=== PATIENT | male | born 1965 | race Caucasian/White ===

== ENCOUNTER 2017-11-06 17:55 | Emergency (ER) | payer BC ==
[~2017-11-06] VITALS: Ht 188 cm; Wt 132.8 kg
[~2017-11-06 17:55] MED LIST: ALPR0.5T99 PO; ASPI325T PO; BENA1TAB44 PO; BUPR-197 PO; GEMF600 PO; LOTE20TA PO; NEXI40CA PO; TOPR25TA2 PO; ZOCO40TA PO
[2017-11-06 18:02] VITALS: PULSE 134; RESP 20; TEMP 97.7; O2SAT 99
[2017-11-06] MEDS ORDERED: diphenhydrAMINE HCL 50 MG/ML VIAL IVP ONE (18:15)
[2017-11-06] MEDS ORDERED: FAMOTIDINE 20 MG/2 ML VIAL IV PUSH ONE (18:15)
[2017-11-06] MEDS ORDERED: SODIUM CHLORIDE 0.9% FLUSH 10 ML FLUSH IV FLUSH PRN (18:15)
[2017-11-06] MEDS ORDERED: methylPREDNISolone SOD SUCC 125 MG/2 ML VIAL IV PUSH ONE (18:15)
[2017-11-06] MEDS ORDERED: LISI-519 PO (18:18)
[2017-11-06] MEDS ORDERED: NEXI20CA PO (18:18)
[2017-11-06] MEDS ORDERED: METO100T PO (18:18)
[2017-11-06] MEDS ORDERED: ASPI-183 PO (18:18)
[2017-11-06] MEDS ORDERED: LORA0.5T PO (18:18)
[2017-11-06] MEDS ORDERED: ZOCO40TA PO (18:18)
[2017-11-06] MEDS ORDERED: AMLO5TAB2 PO (18:18)
--- NOTE | 2017-11-06 18:18 | PD ---
HPI Chief Complaint: Allergic/Adverse Reaction Time Seen by Provider: 18:15 Travel History International Travel<30 days: No Contact w/Intl Traveler<30days: No Traveled to known affect area: No History of Present Illness HPI 52-year-old male patient with history of hypertension, currently on lisinopril, presents to the ER today because he states that his upper lip started swelling at around noon, and is getting worse despite taking Benadryl. He denies any new medications, foods. He denies any trouble swallowing, shortness of breath, rashes, or any other issues. He has been on lisinopril for several years. He states that the only other medication he has had a reaction to was Lotensin which cause a rash in his mouth. Modifying Factors: None Associated Signs & Symptoms: Upper lip swelling Risk Factors: On lisinopril PFSH Past Medical History Anxiety: Yes High Cholesterol: Yes Diminished Hearing: No GERD: Yes Hypertension: Yes Influenza Vaccination: No ?: Not Past Surgical History Gynecologic Surgery: Yes (VASTECTOMY) Other Surgery: Yes (VASECTOMY) Family History Family Myocardial Infarction: Yes (GRANDMOTHER) Social History Alcohol Use: Yes (SOCIALLY WINE, LAST NIGHT LAST DRINK) Tobacco Use: Yes (HASN'T HAD A CIGARETT FOR 4 DAYS) Substance Use: No Allergies-Medications (Allergen,Severity, Reaction): Coded Allergies: No Known Allergies (Verified Adverse Reaction, Unknown, 11/06/17) Reported Meds & Prescriptions Reported Meds & Active Scripts Active Reported Tramadol (Tramadol HCl) 50 Mg Tab 50 Mg PO Q4H PRN Diphenhydramine (Diphenhydramine HCl) 25 Mg Cap 50 Mg PO ONCE Zocor (Simvastatin) 40 Mg Tab 40 Mg PO DAILY Nexium (Esomeprazole DR) 20 Mg Capdr 20 Mg PO DAILY Amlodipine (Amlodipine Besylate) 5 Mg Tab 5 Mg PO DAILY Lorazepam 0.5 Mg Tab 0.5 Mg PO BID PRN Aspirin 325 Mg Tab 325 Mg PO DAILY Metoprolol Tartrate 100 Mg Tab 100 Mg PO HS Lisinopril 5 Mg Tab 5 Mg PO BID Review of Systems Except as stated in HPI: all other systems reviewed are Neg Physical Exam Narrative GENERAL: Well-developed middle age male patient currently in mild distress. Awake and oriented 3. SKIN: Focused skin assessment warm/dry. HEAD: Atraumatic. Normocephalic. EYES: Pupils equal and round. No scleral icterus. No injection or drainage. ENT: Mucosa pink and moist. No erythema or exudates. No uvular edema. No uvular , palatal, or tonsillar deviation. Airway patent. There is notable upper lip swelling concerning for angioedema. NECK: Trachea midline. No JVD. CARDIOVASCULAR: Regular rate and rhythm. No murmur appreciated. RESPIRATORY: No accessory muscle use. Clear to auscultation. Breath sounds equal bilaterally. GASTROINTESTINAL: Abdomen soft, non-tender, nondistended. Hepatic and splenic margins not palpable. MUSCULOSKELETAL: No obvious deformities. No clubbing. No cyanosis. No edema. NEUROLOGICAL: Awake and alert. No obvious cranial nerve deficits. Motor grossly within normal limits. Normal speech. PSYCHIATRIC: Appropriate mood and affect; insight and judgment normal. Data Data Last Documented VS Vital Signs Date Time Temp Pulse Resp B/P (MAP) Pulse Ox O2 Delivery O2 Flow Rate FiO2 11/06/17 18:56 115 20 94 11/06/17 18:55 117/84 (95) Room Air 11/06/17 18:02 97.7 Orders Orders Ecg Monitoring (11/06/17 18:15) Iv Access Insert/Monitor (11/06/17 18:15) Oximetry (11/06/17 18:15) Diphenhydramine Inj (Benadryl Inj) (11/06/17 18:15) Methylprednisolone So Succ Inj (Solumedr (11/06/17 18:15) Famotidine Inj (Pepcid Inj) (11/06/17 18:15) Sodium Chloride 0.9% Flush (Ns Flush) (11/06/17 18:15) Ns (Bolus) Inj (11/06/17 19:00) MDM Medical Decision Making Medical Screen Exam Complete: Yes Emergency Medical Condition: Yes Medical Record Reviewed: Yes Differential Diagnosis Allergic reaction/angioedema versus reaction to lisinopril Narrative Course Patient was given Benadryl, Solu-Medrol, and IV fluids in the ER. Planning to observe to see if symptoms are progressing. Can be released if doing well after observation. Physician Communication Physician Communication Case is signed out to Dr. Oneill at 7 PM for reevaluation after meds. Diagnosis Primary Impression: Angioedema due to angiotensin converting enzyme inhibitor (ARNIE-I) Condition: Stable Soontharothai,Rewadee MD Nov 06, 2017 18:18
[2017-11-06] MEDS ORDERED: DIPH25CA PO (18:19)
[2017-11-06] MEDS ORDERED: TRAM50TA PO (18:19)
[2017-11-06 18:33] VITALS: BP 113/93; PULSE 136; RESP 18; O2SAT 97
[2017-11-06 18:55] VITALS: BP 117/84; PULSE 115; RESP 20; O2SAT 94
[2017-11-06] MEDS ORDERED: SODIUM CHLOR 0.9% 1000 ML INJ 1,000 ML IV ONE (19:00)
--- NOTE | 2017-11-06 19:14 | PD ---
Physical Exam Date Seen by Provider: Nov 06, 2017 Time Seen by Provider: 19:12 Narrative Accepted in transfer of care from Dr Bradford GENERAL: Well-developed well-nourished female in no acute distress no respiratory distress SKIN: Warm and dry. HEAD: Normocephalic. EYES: No scleral icterus. No injection or drainage. ENT: upper lip angioedema sparing the lower lip and airway is patent Data Data Last Documented VS Vital Signs Date Time Temp Pulse Resp B/P (MAP) Pulse Ox O2 Delivery O2 Flow Rate FiO2 11/06/17 21:12 88 20 118/77 (91) 11/06/17 20:24 94 11/06/17 18:55 Room Air 11/06/17 18:02 97.7 Orders Orders Ecg Monitoring (11/06/17 18:15) Iv Access Insert/Monitor (11/06/17 18:15) Oximetry (11/06/17 18:15) Diphenhydramine Inj (Benadryl Inj) (11/06/17 18:15) Methylprednisolone So Succ Inj (Solumedr (11/06/17 18:15) Famotidine Inj (Pepcid Inj) (11/06/17 18:15) Sodium Chloride 0.9% Flush (Ns Flush) (11/06/17 18:15) Sodium Chlor 0.9% 1000 Ml Inj (Ns 1000 M (11/06/17 19:00) Ed Discharge Order (11/06/17 21:16) [facility] Medical Record Reviewed: Yes Supervised Visit with DANIELLE: No Differential Diagnosis Accepted in transfer of care from Dr Bradford; please refer to her dictation Narrative Course Accepted in transfer of care from Dr Bradford; follow up of medication response to upper lip angioedema @ 20:28 upper lip angioedema decreasing; airway remains patent and lung sounds remain clear with no wheezing @ 21: 20 patient continues to show improvement and wants to leave. At this time patient appears to be stable for outpatient management with ongoing use of Benadryl every 4 hours over the next 48 hours and then Zyrtec 10 mg daily for 7 days as well as Zantac 300 milligrams daily for 7 days and will be given prescription for prednisone for the next 5 days. Patient is also told to discontinue use of all CLIVE inhibitors/Lisinopril. Patient understands medication restrictions and medication therapy. Patient is encouraged to return immediately to the emergency department if he has a sensation that there is recurrent swelling developing of the upper lip. Diagnosis Primary Impression: Angioedema due to angiotensin converting enzyme inhibitor (CLIVE-I) Referrals: Primary Care Physician 2 days Contact office regarding management of blood pressure medications and to notify primary regarding adverse reaction to lisinopril Patient Instructions: General Instructions Additional Instruction: Increase fluid hydration Avoid hot beverages and foods and avoid overheating Do NOT take lisinopril antihypertensive Do not drink alcoholic beverages Follow-up with your primary care provider on Wednesday call office to confirm appointment and discuss further management of blood pressure without Clive inhibitors without lisinopril Use [id number] Benadryl 25-50 mg every 4-6 hours for allergic symptoms for the next 48 hours then may use Zyrtec 10 mg daily for 7 days Take Zantac 150, 300 mg once daily for the next 7 days Return to the emergency department for any concerns or change in condition Med/Other Pt SpecificInfo: Prescription(s) given Scripts Prednisone (Prednisone) 50 Mg Tab 50 MG PO DAILY for 4 Days, #4 TAB 0 Refills Prov: Christa Oneill MD 11/06/17 Disposition: 01 DISCHARGE HOME Condition: Stable Christa Oneill MD Nov 06, 2017 19:14
[2017-11-06 20:24] VITALS: BP 118/76; PULSE 96; RESP 20; O2SAT 94
[2017-11-06 21:12] VITALS: BP 118/77; PULSE 88; RESP 20
[2017-11-06] MEDS ORDERED: PRED50 PO (21:19)
[2017-11-06 21:28] VITALS: BP 116/78
== END 2017-11-06 21:30 | disposition home or self-care (01) ==
LOC: PHED 17:55
DX: T46.4X5A Adverse effect of angiotensin-converting-enzyme inhibitors, initial encounter (principal); T78.3XXA Angioneurotic edema, initial encounter; I10 Essential (primary) hypertension; Z72.89 Other problems related to lifestyle
CPT/HCPCS: 96361; 96374; 96375; 99284; J1200; J2930; J7030